=== PATIENT | male | born 1980 | race Caucasian/White ===

== ENCOUNTER 2016-08-16 21:07 | Emergency (ER) | payer OTHER ==
[~2016-08-16] VITALS: Ht 180.3 cm; Wt 106.6 kg
[~2016-08-16 21:07] MED LIST: ADVAIR 250/501 EA INH; ALBUTEROL0.09 MG/A2 IH; ALBUTEROL0.09 MG/A2 INH; ATARAX25 MG PO; ATIVAN0.5 MG PO; ATIVAN1 MG PO; COMBIVENT1 ARO IH; DELTASONE50 MG PO; DUONEB 3 MG/3 ML3 M1 INH; GABAPENTIN TAB600 MG PO; MEDROL DOSEPAK4 MG; MEDROL DOSEPAK4 MG PO; NEURONTIN600 MG PO; PREDNICOT20 MG PO; PREDNISONE10 M1 PO; PREDNISONE10 MG PO; PROAIR HFA0.09 MG/AC IH; PROVENTIL0.09 MG/AC; PROVENTIL0.09 MG/AC IH; SEPTRA DS 800 M1 TAB PO; VALIUM10 MG PO; VENTOLIN H0.09 MG/AC IH; VIBRAMYCIN100 MG PO; Ventolin 02.5 MG/3 M INH; ZITHROMAX Z PA250 MG; ZITHROMAX Z PA250 MG PO; ZITHROMAX250 MG PO
[2016-08-16] MEDS ORDERED: PREDNISONE10 MG PO (22:38)
[2016-08-16] MEDS ORDERED: DOXYCYCLINE100 M3 PO (22:38)
[2016-08-16] MEDS ORDERED: VENTOLIN H0.09 MG/AC INH (22:38)
== END 2016-08-16 22:44 | disposition home or self-care (01) ==
LOC: ED 21:07
DX: J20.9 Acute bronchitis, unspecified (principal); J45.909 Unspecified asthma, uncomplicated; F17.200 Nicotine dependence, unspecified, uncomplicated; Z79.899 Other long term (current) drug therapy

== ENCOUNTER 2016-09-25 14:24 | Emergency (ER) | payer OTHER ==
[~2016-09-25] VITALS: Wt 106.6 kg
[~2016-09-25 14:24] MED LIST changes: +DOXYCYCLINE100 M3 PO; +VENTOLIN H0.09 MG/AC INH
[2016-09-25 15:13] LABS: BASO # 0.1 10*3/uL (0.0-0.1); BASO % 0.9 % (0.0-1.0); EOS # 0.1 10*3/uL (0.0-0.4); EOS % 1.4 % (1.0-4.0); HEMATOCRIT 46.7 % (42.0-52.0); HEMOGLOBIN 15.9 g/dl (14.0-18.0); LYMPH # 2.1 10*3/uL (1.3-4.4); MEAN CELL VOLUME 93.4 fl (80.0-94.0); MEAN CORPUSCULAR HGB 31.8 pg (27.0-31.0); MEAN PLATELET VOLUME 10.5 fl (9.6-12.3); MONO # 0.6 10*3/uL (0.1-1.0); MONO % 7.3 % (3.0-9.0); NEUT # 4.9 10*3/uL (2.3-7.9); NEUT % 63.3 % (47.0-73.0); PLATELET COUNT AUTOMATED 233 10*3/uL (130-400); RED CELL DISTRI WIDTH 12.1 % (0-14.5); WHITE BLOOD COUNT 7.7 10*3/uL (4.8-10.8)
[2016-09-25 15:28] LABS: ALBUMIN 3.9 gm/dl (3.1-4.5); ALKALINE PHOSPHATASE 81 U/L (45-117); BILIRUBIN, TOTAL 0.5 mg/dl (0.2-1.0); BUN 8 mg/dl (7-24); CARBON DIOXIDE 26 mmol/L (21-32); CHLORIDE 108 mmol/L (98-107); EST GLOM FILT AFRICAN AMERICAN > 60 ml/min; GLUCOSE 103 mg/dL (65-99); POTASSIUM 3.6 mmol/L (3.5-5.1); SGOT/AST 31 IU/L (3-35); SGPT/ALT 58 U/L (12-78); SODIUM 142 mmol/L (136-145); TOTAL PROTEIN 7.5 gm/dL (6.4-8.2)
== END 2016-09-25 15:40 | disposition home or self-care (01) ==
LOC: ED 14:24
PROVIDERS: Student in an Organized Health Care Education/Training Program
DX: J45.901 Unspecified asthma with (acute) exacerbation (principal); J44.9 Chronic obstructive pulmonary disease, unspecified

== ENCOUNTER → 2016-12-15 | Outpatient (CLI) | payer OTHER ==
[2016-12-17 05:08] LABS: HEPATITIS B SURFACE AB 006395 Non Reactive (.); HEPATITIS Be ANTIGEN 006619 Negative (Negative)
== END | disposition home or self-care (01) ==
LOC: LAB 13:30
PROVIDERS: Family Medicine Adult Medicine
DX: B19.20 Unspecified viral hepatitis C without hepatic coma (principal)

== ENCOUNTER 2017-03-23 10:54 | Emergency (ER) | payer OTHER ==
[~2017-03-23] VITALS: Wt 106.6 kg
[2017-03-23] MEDS ORDERED: GABAPENTIN600 MG PO (11:40)
== END 2017-03-23 12:27 | disposition home or self-care (01) ==
LOC: ED 10:54
DX: Z76.0 Encounter for issue of repeat prescription (principal); G89.29 Other chronic pain; F17.200 Nicotine dependence, unspecified, uncomplicated; F41.9 Anxiety disorder, unspecified; I10 Essential (primary) hypertension; J45.909 Unspecified asthma, uncomplicated; Z86.19 Personal history of other infectious and parasitic diseases

== ENCOUNTER 2017-06-24 16:26 | Emergency (ER) | payer OTHER ==
[~2017-06-24] VITALS: Ht 182.8 cm; Wt 99.8 kg
[~2017-06-24 16:26] MED LIST changes: +GABAPENTIN600 MG PO
[2017-06-24] MEDS ORDERED: TAMIFLU 75MG CA75 MG PO (17:45)
[2017-06-24] MEDS ORDERED: PREDNISONE10 MG PO (17:45)
[2017-06-24] MEDS ORDERED: ALBUTEROL2.5 MG/0.5 INH (17:45)
== END 2017-06-24 17:48 | disposition home or self-care (01) ==
LOC: ED 16:26
DX: J20.9 Acute bronchitis, unspecified (principal); J45.901 Unspecified asthma with (acute) exacerbation

== ENCOUNTER → 2017-08-05 | Outpatient (CLI) | payer OTHER ==
[~2017-08-05] MED LIST changes: +ALBUTEROL2.5 MG/0.5 INH; +TAMIFLU 75MG CA75 MG PO
== END | disposition home or self-care (01) ==
LOC: RAD 13:37
DX: J98.4 Other disorders of lung (principal); J42 Unspecified chronic bronchitis; F17.200 Nicotine dependence, unspecified, uncomplicated

== ENCOUNTER 2017-08-30 12:44 | Emergency (ER) | payer OTHER ==
[~2017-08-30] VITALS: Ht 182.8 cm; Wt 104.3 kg
[2017-08-30] MEDS ORDERED: DUONEB 3 MG/3 ML3 M1 INH (13:06)
[2017-08-30] MEDS ORDERED: GABAPENTIN TAB600 MG PO (13:07)
== END 2017-08-30 13:20 ==
LOC: ED 12:44
DX: G89.29 Other chronic pain (principal); Z76.0 Encounter for issue of repeat prescription

== ENCOUNTER → 2018-05-09 | Outpatient (CLI) | payer OTHER ==
[~2018-05-09] MED LIST changes: +IPRATROPIU0.2 MG/1 M NEB
== END | disposition home or self-care (01) ==
LOC: CT 05-07 11:00
DX: J42 Unspecified chronic bronchitis (principal); F17.200 Nicotine dependence, unspecified, uncomplicated

== ENCOUNTER 2019-01-06 12:05 | Emergency (ER) | payer OTHER ==
[~2019-01-06] VITALS: Ht 180.3 cm; Wt 113.4 kg
== END 2019-01-06 13:20 | disposition home or self-care (01) ==
LOC: ED 12:05
DX: S86.912A Strain of unspecified muscle(s) and tendon(s) at lower leg level, left leg, initial encounter (principal); X50.1XXA Overexertion from prolonged static or awkward postures, initial encounter; Y93.61 Activity, american tackle football; Y92.89 Other specified places as the place of occurrence of the external cause; Y99.9 Unspecified external cause status

== ENCOUNTER 2019-06-20 12:45 | Emergency (ER) | payer OTHER ==
[~2019-06-20] VITALS: Ht 180.3 cm; Wt 113.4 kg
[~2019-06-20 12:45] MED LIST changes: -PREDNISONE20 M1 PO
[2019-06-20] MEDS ORDERED: ZITHROMAX250 MG PO (14:56)
[2019-06-20] MEDS ORDERED: PREDNISONE20 M1 PO (14:56)
== END 2019-06-20 15:30 | disposition home or self-care (01) ==
LOC: ED 12:45
DX: J40 Bronchitis, not specified as acute or chronic (principal); I10 Essential (primary) hypertension; E78.00 Pure hypercholesterolemia, unspecified; F17.200 Nicotine dependence, unspecified, uncomplicated

== ENCOUNTER → 2019-06-20 | Outpatient (CLI) | payer OTHER ==
[~2019-06-20] MED LIST changes: +PREDNISONE20 M1 PO
[2019-06-20 13:13] LABS: BASO # 0.1 10*3/uL (0.0-0.1); BASO % 1.1 % (0.0-1.0); EOS # 0.2 10*3/uL (0.0-0.4); EOS % 3.5 % (1.0-4.0); HEMATOCRIT 45.9 % (42.0-52.0); HEMOGLOBIN 15.5 g/dl (14.0-18.0); LYMPH # 2.4 10*3/uL (1.3-4.4); LYMPH % 44.4 % (27.0-41.0); MEAN CELL VOLUME 93.9 fl (80.0-94.0); MEAN CORPUSCULAR HGB 31.7 pg (27.0-31.0); MEAN CORPUSCULAR HGB CONC 33.8 g/dl (33.0-37.0); MONO # 0.5 10*3/uL (0.1-1.0); MONO % 8.8 % (3.0-9.0); NEUT # 2.3 10*3/uL (2.3-7.9); PLATELET COUNT AUTOMATED 189 10*3/uL (130-400); RED BLOOD COUNT 4.89 10*6/uL (4.50-5.90); RED CELL DISTRI WIDTH 12.3 % (0-14.5); WHITE BLOOD COUNT 5.4 10*3/uL (4.8-10.8)
[2019-06-20 13:28] LABS: ALBUMIN 3.9 gm/dl (3.1-4.5); ALKALINE PHOSPHATASE 90 U/L (45-117); BUN 6 mg/dl (7-24); CHLORIDE 111 mmol/L (98-107); CREATININE 1.02 mg/dL (0.70-1.30); IRON 130 ug/dL (65-175); POTASSIUM 3.9 mmol/L (3.5-5.1); SGOT/AST 24 IU/L (3-35); SGPT/ALT 60 U/L (12-78); SODIUM 141 mmol/L (136-145); TOTAL IRON BINDING CAPACITY 307 ug/dl (250-450); TOTAL PROTEIN 7.4 gm/dL (6.4-8.2)
[2019-06-20 14:03] LABS: FERRITIN 273.6 ng/mL (22.0-322.0); VITAMIN D, 25-HYDROXY 14.8 ng/mL (30-100)
[2019-06-22 07:04] LABS: HEPATITIS B SURFACE AB 006395 Non Reactive (.); HEPATITIS Be ANTIGEN 006619 Negative (Negative)
== END | disposition home or self-care (01) ==
LOC: LAB 12:29
PROVIDERS: Family Medicine
DX: R53.83 Other fatigue (principal); B19.20 Unspecified viral hepatitis C without hepatic coma

== ENCOUNTER 2019-08-09 16:16 | Emergency (ER) | payer OTHER ==
[~2019-08-09 16:16] MED LIST changes: +PREDNISONE20 M1 PO
[2019-08-09] MEDS ORDERED: NEURONTIN600 MG PO (16:29)
== END 2019-08-09 16:39 | disposition home or self-care (01) ==
LOC: ED 16:16
DX: Z76.0 Encounter for issue of repeat prescription (principal); I10 Essential (primary) hypertension; E78.00 Pure hypercholesterolemia, unspecified; Z79.899 Other long term (current) drug therapy; Z79.2 Long term (current) use of antibiotics; Z87.891 Personal history of nicotine dependence

== ENCOUNTER 2019-10-17 11:36 | Emergency (ER) | payer OTHER ==
[~2019-10-17] VITALS: Ht 180.3 cm; Wt 113.4 kg
[2019-10-17] MEDS ORDERED: PREDNISONE50 MG PO (12:57)
[2019-10-17] MEDS ORDERED: ZITHROMAX250 MG PO (12:57)
== END 2019-10-17 12:59 | disposition home or self-care (01) ==
LOC: ED 11:36
DX: J20.9 Acute bronchitis, unspecified (principal); I10 Essential (primary) hypertension; E78.00 Pure hypercholesterolemia, unspecified; F17.200 Nicotine dependence, unspecified, uncomplicated

== ENCOUNTER → 2020-09-06 | Outpatient (CLI) | payer OTHER ==
[~2020-09-06] MED LIST changes: +PREDNISONE50 MG PO
[2020-09-06 16:20] LABS: BASO # 0.1 10*3/uL (0.0-0.1); BASO % 1.2 % (0.0-1.0); EOS # 0.1 10*3/uL (0.0-0.4); EOS % 1.2 % (1.0-4.0); HEMATOCRIT 45.9 % (42.0-52.0); LYMPH # 2.4 10*3/uL (1.3-4.4); LYMPH % 37.2 % (27.0-41.0); MEAN CELL VOLUME 90.4 fl (80.0-94.0); MEAN CORPUSCULAR HGB 31.5 pg (27.0-31.0); MEAN CORPUSCULAR HGB CONC 34.9 g/dl (33.0-37.0); MEAN PLATELET VOLUME 10.8 fl (9.6-12.3); MONO # 0.5 10*3/uL (0.1-1.0); MONO % 7.2 % (3.0-9.0); NEUT # 3.4 10*3/uL (2.3-7.9); PLATELET COUNT AUTOMATED 269 10*3/uL (130-400); RED BLOOD COUNT 5.08 10*6/uL (4.50-5.90); RED CELL DISTRI WIDTH 11.9 % (0-14.5); WHITE BLOOD COUNT 6.5 10*3/uL (4.8-10.8)
[2020-09-06 16:45] LABS: ALBUMIN 4.1 gm/dl (3.1-4.5); BUN 10 mg/dl (7-24); CHLORIDE 105 mmol/L (98-107); CREATININE 1.05 mg/dL (0.70-1.30); IRON 110 ug/dL (65-175); POTASSIUM 3.5 mmol/L (3.5-5.1); SGOT/AST 26 IU/L (3-35); SGPT/ALT 79 U/L (12-78); SODIUM 137 mmol/L (136-145); TOTAL IRON BINDING CAPACITY 349 ug/dl (250-450)
[2020-09-06 16:46] LABS: ALKALINE PHOSPHATASE 91 U/L (45-117); TOTAL PROTEIN 7.8 gm/dL (6.4-8.2)
[2020-09-07 08:08] LABS: ALPHA-1-ANTITRYPSIN, SERUM 81 mg/dL (101-187); HEP B CORE AB, IGM Negative (Negative); HEPATITIS B SURFACE AB Non Reactive (.); HEPATITIS B SURFACE AG Negative (Negative); HEPATITIS Be ANTIGEN Negative (Negative); HEPATITIS C VIRUS ANTIBODY >11.0 (0.0-0.9)
[2020-09-07 15:07] LABS: ANTI-SMOOTH MUSCLE ANTIBODY 11 Units (0-19); t-TRANSGLUTAMINASE (tTG) IGA <2 U/mL (0-3)
[2020-09-07 20:07] LABS: HCV LOG10 6.653 (.); HEPATITIS C QNT 4500000 IU/mL (.)
[2020-09-07 22:06] LABS: HEPATITIS B QNT HBV DNA not detected IU/mL (.)
== END | disposition home or self-care (01) ==
LOC: LAB 15:31
PROVIDERS: ATTEND Specialist
DX: B19.20 Unspecified viral hepatitis C without hepatic coma (principal)

== ENCOUNTER 2020-11-14 19:11 | Emergency (ER) | payer OTHER ==
[~2020-11-14] VITALS: Ht 180.3 cm; Wt 103.4 kg
== END 2020-11-14 20:07 | disposition home or self-care (01) ==
LOC: ED 19:11
DX: Z76.0 Encounter for issue of repeat prescription (principal); F17.200 Nicotine dependence, unspecified, uncomplicated; Z79.899 Other long term (current) drug therapy; Z79.2 Long term (current) use of antibiotics

== ENCOUNTER 2021-09-28 03:10 | Emergency (ER) | payer SELFPAY ==
[~2021-09-28] VITALS: Wt 90.7 kg
[2021-09-28] MEDS ORDERED: VENT7GM INH (03:24)
[2021-09-28] MEDS ORDERED: NAPROSYN500 MG PO (05:09)
[2021-09-28] MEDS ORDERED: CLINDAMYCIN HC300 MG PO (05:09)
== END 2021-09-28 05:45 | disposition home or self-care (01) ==
LOC: ED 03:10
DX: K04.7 Periapical abscess without sinus (principal); Z90.89 Acquired absence of other organs

== ENCOUNTER 2021-11-25 08:18 | Emergency (ER) | payer SELFPAY ==
[~2021-11-25] VITALS: Ht 434.3 cm; Wt 102.1 kg
[~2021-11-25 08:18] MED LIST changes: +CLINDAMYCIN HC300 MG PO; +NAPROSYN500 MG PO; +VENT7GM INH
== END 2021-11-25 09:30 | disposition home or self-care (01) ==
LOC: ED 08:18
DX: J44.1 Chronic obstructive pulmonary disease with (acute) exacerbation (principal)

== ENCOUNTER 2022-11-19 05:41 | Emergency (ER) | payer MEDICAID ==
[~2022-11-19] VITALS: Ht 182.8 cm; Wt 114.8 kg
[2022-11-19] MEDS ORDERED: PREDNISONE20 M1 PO (06:44)
== END 2022-11-19 06:54 | disposition home or self-care (01) ==
LOC: ED 05:41
DX: J44.9 Chronic obstructive pulmonary disease, unspecified (principal); I10 Essential (primary) hypertension; F41.9 Anxiety disorder, unspecified; E78.00 Pure hypercholesterolemia, unspecified; F12.90 Cannabis use, unspecified, uncomplicated; Z59.00 Homelessness unspecified; Z98.890 Other specified postprocedural states